=== PATIENT | male | born 2000 | race Caucasian/White ===

== ENCOUNTER 2022-04-29 14:21 | Emergency (ER) | payer OTHER, SELFPAY ==
[2022-04-29] VITALS (7 sets, daily range): BP systolic 100–122; BP diastolic 68–96; PULSE 66–77; RESP 16–20; TEMP 36.3–36.7; O2SAT 98–100
--- NOTE | 2022-04-29 17:30 | ED.NEUROSD ---
HPI - Neuro Symptoms/Deficit General Chief Complaint: Neuro Symptoms/Deficit Stated Complaint: neuro Time Seen by Provider: 04/29/22 17:01 History of Present Illness HPI Narrative: 22-year-old male presents the emergency room for evaluation of headache, confusion, vertigo, blurred vision,and unequal pupils. Patient also endorses right side of face becomes devoid of sweat. Patient denies any injury or trauma. Patient states confusion and the headache began 5 days ago, and noticed that his pupils were slightly unequal approximately 2 weeks ago. Patient states that he was seen at [facility] last night, and was evaluated with a CT scan, MRI, lab work, and specialists that included neurology and ophthalmology. Patient states that he was not given any definitive answers in his 12-hour stay, so he left AMA and presented here for further evaluation. Patient denies any neck pain. Denies any focal neurodeficits unilateral weakness, or loss of motor movements. Denies any paresthesias. Related Data Allergies Allergy/AdvReac Type Severity Reaction Status Date / Time azithromycin Allergy Rash Verified 04/29/22 14:34 Review of Systems Review of Systems: CONSTITUTIONAL: Denies fever, chills, or sweats. EYES: Reports pupillary changes ENT: Denies rhinorrhea, congestion, sore throat, or otalgia. CARDIOVASCULAR: Denies chest pain, palpitations, or edema. RESPIRATORY: Denies cough or dyspnea. GASTROINTESTINAL: Denies abdominal pain, nausea, vomiting, or diarrhea. GENITOURINARY: Denies dysuria or hematuria. SKIN: Denies rash or itching. MUSCULOSKELETAL: Denies back pain, joint pain, or myalgia. NEUROLOGIC: Reports headache, reports confusion PSYCHIATRIC: Denies anxiety or depression. Exam Narrative: GENERAL: Well-appearing, well-nourished, no physical limitations, and in no acute distress. HEAD: Normocephalic, atraumatic. EYES: Conjunctivae normal, EOMI, pupils are round reactive to light and accommodate. Pupillary size left< right ENT: External nose normal, Nares clear, no rhinorrhea or epistaxis. Mucous membranes moist. Oropharynx without tonsillar hypertrophy exudate or other lesions. External ears normal, bilateral TMs normal bilaterally NECK: Supple. No meningeal signs. No adenopathy or masses. No carotid bruits or JVD CHEST: Clear to auscultation. No respiratory distress. No wheezes rales or rhonchi. No tenderness. HEART: Regular rate and rhythm. No murmur heard. Normal peripheral pulses. BACK: No CVA tenderness; No cervical/thoracic/lumbar tenderness, step-offs, bony abnormality; FROM EXTREMITIES: Normal range of motion. No edema. No clubbing or cyanosis SKIN: Warm, dry, no rash. No noted wounds NEURO: No focal deficits. Alert and oriented x3. MAEW. CN's II-XI intact bilaterally, normal gait PSYCH: Cooperative. Normal mood and affect. Course Course Emergency Course: 1730: Request for records from [facility]. Vital Signs Vital signs: Vital Signs Temperature 36.7 C 04/29/22 14:31 Pulse Rate 77 04/29/22 14:31 Respiratory Rate 20 04/29/22 14:31 Blood Pressure 114/96 H 04/29/22 14:31 Pulse Oximetry 100 04/29/22 14:31 Oxygen Delivery Room Air 04/29/22 14:31 Temperature 36.4 C 04/29/22 22:41 Pulse Rate 69 04/29/22 22:41 Respiratory Rate 16 04/29/22 22:41 Blood Pressure 104/68 04/29/22 22:41 Pulse Oximetry 100 04/29/22 22:41 Oxygen Delivery Room Air 04/29/22 14:31 MDM - Neuro Symptoms/Deficit MDM Narrative Medical decision making narrative: 2100: Reviewed the medical records from [facility]. Patient presented to the [facility] emergency room with similar symptoms as today. CT and CTA showed no acute abnormalities. Patient was evaluated by ophthalmology and was encouraged to follow-up with them in 1 to 2 weeks. 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 Discussed the case with neurology at [facility], they said that the pituitary tumor was unlikely the cause of th
--- NOTE | 2022-04-29 17:40 | PC.NURSE ---
release of records filled out and signed by pt. Faxed to [facility] by
--- NOTE | 2022-04-29 18:55 | PC.NURSE ---
This RN called [facility] medical records after request form faxed by ED physician office secretary approx [phone]. Per [facility] warehouse team member, they have 1 hour to return my call.
[2022-04-29] MEDS: ACETAMINOPHEN 500 MG TABLET 1000 MG PO (20:39)
[2022-04-29 20:52] LABS: Basophils Percent Auto 0.3 % (0.2-1.2); Eosinophils Absolute Auto 0.1 K/mm3 (0-0.3); Eosinophils Percent Auto 1.3 % (0-4.4); Hemoglobin 15.4 g/dL (14.0-18.0); Immature Granulocyte Absolute 0.02 K/mm3 (0.00-0.031); Immature Granulocyte Percent A 0.3 % (0-0.5); Lymphocytes Absolute Auto 2.55 K/mm3 (0.9-3.2); Mean Corpuscular Hemoglobin 31.4 pg (26-34); Mean Corpuscular Volume 89.6 fl (80-100); Mean Platelet Volume 9.5 fl (7.4-10.4); Monocytes Absolute Auto 0.4 K/mm3 (0.1-0.6); Monocytes Percent Auto 6.2 % (2.6-8.5); Neutrophils Absolute Auto 3.8 K/mm3 (1.3-6.7); Neutrophils Percent Auto 54.9 % (45.5-73.1); Platelet Count Result 267 k/mm3 (150-375); Red Blood Count 4.91 M/mm3 (4.6-6.20); Red Cell Distribution Width 12.3 % (11.5-14.5); White Blood Count 6.9 K/mm3 (4.5-10.0)
[2022-04-29 20:58] LABS: Appearance Urine Clear (Clear); Bilirubin Urine Negative (Negative); Blood Urine 1+ (Negative); Glucose Urine UA Negative (Negative); Ketones Urine Trace mg/dL (Negative); Leukocyte Esterase Ur Negative LEU/UL (Negative); Nitrate Urine Negative (Negative); Protein Urine Negative (Negative); Specific Grav Ur >= 1.030 (1.001-1.035); Urobilinogen Urine 0.2 mg/dL (<2.0)
[2022-04-29 21:01] LABS: Bacteria Urine Trace /hpf; Mucus Urine Moderate /lpf; Squamous Epithelial Cell Urine Rare /hpf (Few); WBC Urine 0-3 /hpf
[2022-04-29 21:03] LABS: Add Urine Microscopic? YES; Alanine Aminotransferase 17 U/L (6-50); Albumin Level 5.5 g/dL (3.5-5.1); Alkaline Phosphatase 79 U/L (38-126); Anion Gap 13 mmol/L (8-16); Aspartate Amino Transferase 22 U/L (17-59); Bilirubin,Total 0.7 mg/dL (0.2-1.3); Blood Urea Nitrogen 14 mg/dL (9-20); CRP < 0.5 mg/dL (<1.0); Calcium 9.9 mg/dL (8.4-10.2); Carbon Dioxide 26 mmol/L (22-30); Chloride 102 mmol/L (98-107); Color Urine Dark Yellow (Yellow); Estimated Glomerular Filt Rate > 60; Glucose 111 mg/dL (65-110); Potassium 3.7 mmol/L (3.4-5.0); Sodium 141 mmol/L (137-145)
[2022-04-29 21:37] LABS: Erythrocyte Sedimentation Rate 1 mm/hr (0-20)
== END 2022-04-29 23:24 | disposition home or self-care (01) ==
PROVIDERS: Emergency Provider Nurse Practitioner Family
DX: R42 Dizziness and giddiness (principal); R51.9 Headache, unspecified; H53.8 Other visual disturbances
CPT/HCPCS: 36415; 80053; 81001; 85025; 85652; 86140; 99283; A9270